=== PATIENT | male | born 1965 | race Hispanic/Latino ===

== ENCOUNTER 2020-12-10 06:55 | Day surgery (SDC) | payer OTHER ==
[2020-12-09 10:14] LABS: Hematocrit 45.1 % (35.5-45.6); Hemoglobin 15.7 gm/dl (11.8-15.2); Mean Corpuscular HGB Conc 35 % (32-34); Mean Corpuscular Volume 103 fl (84-94); Platelet Count 182 K/mm3 (140-440); Red Blood Count 4.38 M/mm3 (3.65-5.03); Red Cell Distribution Width 15.8 % (13.2-15.2)
[2020-12-09 10:35] LABS: BUN/Creatinine Ratio 20; Blood Urea Nitrogen 16 mg/dL (9-20); Calcium 9.2 mg/dL (8.4-10.2); Hemolysis Index 3
[2020-12-10] MEDS ORDERED: ONDANSETRON 4 MG/2 ML INJ IV PRN (07:34)
[2020-12-10] MEDS ORDERED: HYDROmorphone 1 MG/1 ML INJ IV PRN ×2 (07:34)
--- NOTE | 2020-12-10 07:35 | Anesthesia Day of Surgery ---
Anesthesia Day of Surgery - Day of Surgery Patient Examined: Yes Patient H&P Reviewed: Yes Patient is NPO: Yes
--- NOTE | 2020-12-10 07:36 | Anesthesia Consultation ---
Anesthesia Consult and Med Hx Date of service: 12/10/20 - Airway Anesthetic Teeth Evaluation: Crowns ROM Head & Neck: Adequate Mental/Hyoid Distance: Adequate Mallampati Class: Class II Intubation Access Assessment: Good - Pre-Operative Health Status ASA Pre-Surgery Classification: ASA2 Proposed Anesthetic Plan: MAC (GA if needed) - Pulmonary Hx Smoking: Yes (STOPPED X 10 YRS) Hx Sleep Apnea: No ([facility] PRE SCREEN HIGH RISK) - Cardiovascular System Hx Hypertension: Yes (X 3 MONTHS) - Central Nervous System Hx Psychiatric Problems: No - Hematic Hx Anemia: No - Other Systems Hx Cancer: No
[2020-12-10] MEDS ORDERED: LACTATED RINGERS 1,000 ML IV SCH (08:00)
[2020-12-10] MEDS: MIDAZOLAM 2 MG/2 ML INJ IV NR ×2 (08:03→08:40)
[2020-12-10] MEDS ORDERED: LIDOCAINE (1%) 10 MG/1 ML VIAL 20 ML MDV ONE (08:52)
[2020-12-10] MEDS ORDERED: BUPIVACAINE/PF (0.5%) 5 MG/1 ML 30 ML VIAL INFILTRATI ONE ×2 (08:53→10:17)
[2020-12-10] MEDS ORDERED: ceFAZolin/STERILE WATER 2 GM/20 ML SYRINGE IV NR (09:00)
[2020-12-10] MEDS ORDERED: MIDAZOLAM 2 MG/2 ML INJ ONE (09:10)
[2020-12-10] MEDS ORDERED: propofoL 200 MG/20 ML VIAL IV ONE (09:10)
[2020-12-10] MEDS ORDERED: LIDOCAINE MPF (2%) 20 MG/1 ML VIAL 5 ML ONE (09:10)
[2020-12-10] MEDS ORDERED: HYDROmorphone 1 MG/1 ML INJ ONE (09:10)
[2020-12-10] MEDS ORDERED: LIDOCAINE (1%) 10 MG/1 ML VIAL 20 ML MDV INFILTRATI ONE (10:17)
--- NOTE | 2020-12-10 11:34 | Short Stay Summary ---
Short Stay Documentation Date of service: 12/10/20 - History Principal diagnosis: soft tissue mass bilateral neck, left upper chest, left arm H&P: obtained from office - Allergies and Medications Current Medications: Allergies egg Allergy (Verified 12/09/20 12:59) Anaphylaxis pecan nut Allergy (Verified 12/09/20 12:59) Vomiting strawberry Allergy (Verified 12/09/20 12:59) Anaphylaxis walnut Allergy (Verified 12/09/20 12:59) Vomiting Home Medications Medication Instructions Recorded Confirmed Last Taken Type amLODIPine [Norvasc] 5 mg PO DAILY 12/09/20 12/09/20 12/09/20 History hydroCHLOROthiazide [Hctz] 12.5 mg PO QDAY 12/09/20 12/09/20 12/09/20 History Active Medications Cefazolin Sodium (Cefazolin/Sterile Water 2 Gm/20 Ml Syringe) 2 gm IV PREOP NR Stop: 12/10/20 20:00 Hydromorphone HCl (Hydromorphone 1 Mg/1 Ml Inj) 0.25 mg IV Q10MIN PRN PRN Reason: Pain, Moderate (4-6) Stop: 12/10/20 20:00 Hydromorphone HCl (Hydromorphone 1 Mg/1 Ml Inj) 0.5 mg IV Q10MIN PRN PRN Reason: Pain , Severe (7-10) Stop: 12/10/20 20:00 Lactated Ringer's (Lactated Ringers) 1,000 mls @ 75 mls/hr IV DIRECT NATALIA Last Admin: 12/10/20 08:00 Dose: 75 mls/hr Documented by: Midazolam HCl (Midazolam 2 Mg/2 Ml Inj) 2 mg IV ONCE NR Stop: 12/10/20 20:00 Last Admin: 12/10/20 08:03 Dose: 2 mg Documented by: Ondansetron HCl (Ondansetron 4 Mg/2 Ml Inj) 4 mg IV ONCE PRN PRN Reason: Nausea And Vomiting Stop: 12/10/20 18:00 - Brief post op/procedure progress note Date of procedure: 12/10/20 Pre-op diagnosis: soft tissue mass left arm, left upper chest, b/l neck Post-op diagnosis: same Procedure: 1. Excision STM L arm 2. Excision mass upper Left chest 3. Incisional biopsy of left neck STM Anesthesia: GETA, local Findings: 1. 2 cm STM left arm 2. Skin lesions of left upper chest measuring 2.5cm 3. fatty mass of left neck/inner shoulder area which extended deep towards midline - could not be completely excised as it was traversed by a nerve and blood vessels and extended deep Surgeon: SENDY GARCIA Estimated blood loss: minimal Pathology: list (1. STM left arm) Specimen disposition: to lab (1. STM left arm, 2. mass left upper chest 3. incision bx left neck mass - marked short stitch superficial, double stitck superior, long stitch lateral) Condition: stable - Hospital course Hospital course: Pt observed in PACU and discharged to home in stable condition when criteria met - Disposition Condition at discharge: Good Disposition: DC-01 TO HOME OR SELFCARE Short Stay Discharge Plan Activity: no restrictions Diet: regular Wound: open to air (May shower tomorrow, pat incisions dry, do not scrub or rub) Additional Instructions: May take over the counter pain medications like tylenol or ibuprofen for mild pain. May use ice pack on incisions for pain Use incentive spirometer multiple times per hour for the next 2 days Follow up with: PRIMARY CARE, [Primary Care Provider] - 7 Days SENDY GARCIA DO [Staff Physician] - 10 Days Prescriptions: HYDROcodone/APAP 5-325 [[place] 5/325] 1 each PO Q6HR PRN #15 tablet PRN Reason: Pain , Severe (7-10)
[2020-12-10 14:28] VITALS: BP 123/92
--- NOTE | 2020-12-10 19:38 | Post Anesthesia Evaluation ---
- Post Anesthesia Evaluation Patient Participated: Yes Airway Patent: Yes Stable Respiratory Function: Yes Nausea/Vomiting: No Temp > 96.8F: Yes Pain Manageable: Yes Adequeate Hydration: Yes Anesthesia Complications: No Block Receding Appropriately: Not Applicable Patient on Ventilator: No
--- NOTE | 2020-12-11 14:45 | Operative Report ---
DATE OF SURGERY: 12/10/2020 PREOPERATIVE DIAGNOSIS: Soft tissue mass, left arm, left chest, left upper chest and bilateral neck. POSTOPERATIVE DIAGNOSIS: Soft tissue mass, left arm, left chest, left upper chest and bilateral neck. PROCEDURES: 1. Excision soft tissue mass, left arm. 2. Excision of mass, left upper chest. 3. Incisional biopsy of left neck soft tissue mass. ANESTHESIA: LMA and local. FINDINGS: 1. A 2 cm soft tissue mass of left arm. 2. Skin lesion of upper chest measuring 2.5 cm. 3. Fatty mass of left neck/inner shoulder area, which extended deep towards the midline could not be completely excised as it was traversed by a nerve and blood vessels and extended deep. SURGEON: Julienne Chanel DO ESTIMATED BLOOD LOSS: Minimal. PATHOLOGY: 1. Soft tissue, left arm. 2. Mass, left upper chest. 3. Incisional biopsy, left neck mass -- marked short stitch superficial, double stitch superior, long stitch lateral. CONDITION AND DISPOSITION: The patient stable to PACU. HISTORY OF PRESENT ILLNESS AND INDICATIONS: The patient is a 55-year-old male who presented to [facility] as a referral from his primary care physician for evaluation of bilateral neck/inner shoulder masses, left arm soft tissue mass and a mass of the left upper chest. The patient was having symptoms from these areas. He stated that the mass of his left upper chest and left arm caused him great discomfort and he wanted them excised. He also complained of symmetrical swelling in bilateral lateral neck/inner shoulder areas, which he felt were fatty tumors. He felt that they extended anteriorly and connected in the midline neck area. He did have an ultrasound of his thyroid, which was unremarkable. It was recommended that the patient undergo excision of the soft tissue mass of his left arm, the mass of his left upper chest along with excision of the bilateral lateral neck masses. 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 The left anterior chest mass appeared to be a dermatologic lesion. It was explained to the patient that the masses were deep and involved important structures that the masses would not be excised completely in order to avoid injury to those vital structures. All risks, benefits and alternatives of surgery were discussed with the patient and his at the bedside. Consent was obtained. PROCEDURE IN DETAIL: The patient was identified in the preoperative area and taken back to the operating room and placed on the operating table in supine position. In the preoperative area, all of the areas of concern were marked. Once anesthesia was induced, the left arm, upper chest and left neck were prepped and draped in the usual sterile fashion and time-out was performed. First, I started with a soft tissue mass of the left arm. Local anesthetic was infiltrated into the skin at the intended incision site. A 2.5 cm longitudinal incision was made using a 15 blade. Dissection was carried down through subcutaneous tissue using electrocautery until the mass was encountered. The mass appeared lobulated and fatty and was from the surrounding tissue using blunt dissection with a hemostat. Once completely dissected, the mass was easily removed from the wound, measured at 2 cm and passed off the table as a specimen. The wound was irrigated, hemostasis very carefully ensured. The wound was then closed in layered fashion with a deep dermal layer closed with interrupted 3-0 Vicryl stitches. The skin was approximated using 4-0 Monocryl subcuticular running stitch and skin glue. I then turned my attention to the left upper chest mass. The mass was involving the skin only and was sessile in nature. Therefore, local anesthetic was infiltrated into skin at the intended incision site. An elliptical incision was made around the mass using a 15 blade. The subcutaneous tissue was then dissected using electrocautery and the mass completely removed. It did not appear to involve the subcutaneous tissue. This was measured at 2.5 cm and passed off the table as a specimen. Small subcutaneous flaps were then created using electrocautery in order to approximate the skin. The deep layer was approximated using 3-0 Vicryl interrupted sutures. The skin was then closed without tension using 4-0 Monocryl subcuticular running stitch and skin glue. I then turned my attention to the left neck area. [facility], the area was examined. No obvious mass was identified in the lateral neck inner shoulder area. Also, in the area of patient's concern, there were no large blood vessels seen with the ultrasound. Local anesthetic was infiltrated into skin at the intended incision site. Incision was made using a 15 blade and dissection carried out through the subcutaneous tissue using electrocautery. Immediately visible was an area of fatty tissue that appeared abnormal, unlike the surrounding subcutaneous tissue. This was grasped and dissected from the surrounding tissue using combination of blunt dissection and electrocautery. As the dissection was carried out, it was apparent that the mass was extending deep towards the inner neck and towards the midline. As the dissection was being carried out, there were some superficial nerves encountered that were adhered to the area of the mass along with a superficial blood vessel. It was therefore decided to perform an incisional biopsy in that the entire mass could not be excised for. It was deep and there was increased risk of injury to the underlying nerves and blood vessels. The mass was then transected and marked. The superficial aspect was marked with a short stitch. The superior aspect of the lesion was marked with a double stitch and the lateral aspect was marked with a long stitch. Upon gross examination, it did appear that this was a fatty mass and the specimen measured approximately 4 cm. It was passed off the table as a left neck mass incisional biopsy. The wound was then irrigated and checked for hemostasis, which was very carefully insured. The cut aspect of the fatty mass was marked with 3 small clips. Once hemostasis was ensured, the wound was then closed in layered fashion. The deep layer was closed with interrupted 3-0 Vicryl stitches. The skin was approximated using 4-0 Monocryl subcuticular stitch and skin glue. Due to the deep nature of the mass on the left neck area, I decided not to proceed with dissection of the right neck mass as similar results would be encountered. Therefore, the procedure was ended at this point. At the end of the case, all sponge, instrument, and sharp counts were correct x2. The patient was awoken from anesthesia and taken to PACU in stable condition. The patient's was updated in the waiting area and the patient was updated in the recovery room. TID: [id number] RECEIPT: [id number] CHER/IMANI
== END 2020-12-10 06:56 | disposition home or self-care (01) ==
LOC: OR 06:55
PROVIDERS: ATTEND Surgery
DX: M79.89 Other specified soft tissue disorders (principal); R22.1 Localized swelling, mass and lump, neck; R22.2 Localized swelling, mass and lump, trunk; L82.1 Other seborrheic keratosis; D17.22 Benign lipomatous neoplasm of skin and subcutaneous tissue of left arm; I10 Essential (primary) hypertension; Z20.822 Contact with and (suspected) exposure to COVID-19; Z91.012 Allergy to eggs; Z91.010 Allergy to peanuts; Z88.8 Allergy status to other drugs, medicaments and biological substances; Z79.899 Other long term (current) drug therapy; Z87.891 Personal history of nicotine dependence; Z90.49 Acquired absence of other specified parts of digestive tract
CPT/HCPCS: 11403; 12031; 21550; 25075; 36415; 80048; 85027; 88305; J0690; J1170; J2250; J2704; J7120; U0003; 88307